=== PATIENT | female | born 1960 | race Caucasian/White ===

== ENCOUNTER 2019-06-12 08:42 | Emergency (ER) | payer BC ==
[~2019-06-12] VITALS: Ht 157.5 cm; Wt 55.4 kg
[~2019-06-12 08:42] MED LIST: ASPI-1264 PO; HYDR-4353 PO; IBUP-1984 PO; PER10325T PO; WALKERFR; ZOLP10TA5 PO
[2019-06-12 08:44] VITALS: BP 134/95
[2019-06-12] MEDS ORDERED: BENZ-16 PO (09:13)
== END 2019-06-12 09:23 | disposition home or self-care (01) ==
LOC: ER 08:42
DX: J32.9 Chronic sinusitis, unspecified (principal); Z79.82 Long term (current) use of aspirin; Z79.899 Other long term (current) drug therapy
CPT/HCPCS: 99283